=== PATIENT | female | born 1980 | race Hispanic/Latino ===

== ENCOUNTER 2017-12-16 03:59 | Emergency (ER) | payer MEDICAID, OTHER ==
[~2017-12-16 03:59] MED LIST: FERR325T22 PO; FOLI1TAB15 PO
== END 2017-12-16 05:12 | disposition home or self-care (01) ==
LOC: EDH 03:59
DX: R10.30 Lower abdominal pain, unspecified (principal); M54.9 Dorsalgia, unspecified; R42 Dizziness and giddiness; I10 Essential (primary) hypertension; Z72.0 Tobacco use
CPT/HCPCS: 99281